=== PATIENT | male | born 1975 | race Caucasian/White ===

== ENCOUNTER 2017-07-18 22:59 | Emergency (ER) | payer OTHER ==
[2017-07-19] MEDS ORDERED: ALPRAZOLAM 1 MG TABLET ONE (00:23)
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
== END 2017-07-19 00:54 | disposition home or self-care (01) ==
LOC: ER 22:59
DX: F33.9 Major depressive disorder, recurrent, unspecified (principal); I10 Essential (primary) hypertension; F17.210 Nicotine dependence, cigarettes, uncomplicated
CPT/HCPCS: 99283

== ENCOUNTER 2023-08-14 10:45 | Emergency (ER) | payer OTHER ==
--- OUTSIDE RECORDS SUMMARY | 2023-08-14 10:49 | XMS REPORT | Continuity of Care Document ---
Author Name Unknown Address [address] [facility] [address] [place] [address] [facility] thconnect Address [address] [place] [address] Care Team Providers Care Retail Advertising Sales Manager Name Role Phone Cedric_Adan Attending Clinician Unavailable Kathryn Arellano Attending Clinician [phone] CHRETIAKIKO_Susan Attending Clinician Unavailable Kristina Rodriguez Attending Clinician [phone] SHENA_Cedric Attending Clinician Unavailable Loren Trivedi Attending Clinician [phone] MINOR KING M.D. Attending Clinician Malgorzata vailable Cedric_Adan Admitting Clinician Unavailable CHRETIEN_F Admitting Clinician Unavailable SHENA_Cedric Admitting Clinician Unavailable Payers Payer Name Policy Type Policy Number Effective Date Expirati on Date Source [facility] [id number] AETNA (POS) [id number] 2021 00:00:00 [place] [id number] 2019 00:00:00 Problems Condition Name Condition Details Condition Category Status Onset Date Resolution Date Last Treatment Date Treating Clinician Comments Source Mixed hyperlipid emia Mixed Hyperlipid emia Problem Active 11-08 00:00: 00 [facility] Acute thoracic back pain Acute Thoracic Back Pain Problem Active 8 00:00: 00 [facility] Acute sinusitis Acute Sinusitis Problem Active 09-26 00:00: 00 [facility] Allergic rhinitis Allergic Rhinitis Problem Active 09-26 00:00: 00 [facility] Cough Cough Problem Active 2022-0 7-18 00:00: 00 [facility] Chronic pain Chronic Pain Problem Active 2-03 00:00: 00 [facility] Vitamin D deficiency Vitamin D Deficiency Problem Active 07-23 00:00: 00 [facility] Hyperlipid emia Hyperlipid emia Problem Active 07-23 00:00: 00 [facility] Anxiety Anxiety Problem Active 07-23 00:00: 00 [facility] Chronic depression Chronic Depression Problem Active 07-23 00:00: 00 [facility] Essential hypertensi on Essential Hypertensi on Problem Active 07-23 00:00: 00 [facility] Pain Pain Problem Active 07-23 00:00: 00 [facility] Neck pain Ne[facility] pain Problem Active [facility] Cervical radiculopa thy Cervical radiculopa thy Problem Active [facility] Social History Smoking Status Start Date Stop Date Source Current some day smoker [facility] Light Tobacco Smoker [facility] Medications Ordered Medication Name Filled Medication Name Start Date Stop Date Current Medication? Ordering Clinician Indication Dosage Frequency Signature (SIG) Comments Components Source amlodipine 5 mg tablet Take 1 tablet every day by oral route at bedtime. amlodipine 5 mg tablet Take 1 tablet every day by oral route at bedtime. No 1 Q1D amlodipine 5 mg tablet Take 1 tablet every day by oral route at bedtime. [facility] cyclobenzap rine 5 mg tablet TAKE 1 TABLET BY MOUTH TWICE A DAY NEEDED FOR 90 DAYS cyclobenzap rine 5 mg tablet TAKE 1 TABLET BY MOUTH TWICE A DAY NEEDED FOR 90 DAYS No cyclobenza maxwell 5 mg tablet TAKE 1 TABLET BY MOUTH TWICE A DAY NEEDED FOR 90 DAYS [facility] gabapentin 300 mg capsule TAKE 1 CAPSULE 4 TIMES A DAY BY ORAL ROUTE NEEDED FOR 90 DAYS. gabapentin 300 mg capsule TAKE 1 CAPSULE 4 TIMES A DAY BY ORAL ROUTE NEEDED FOR 90 DAYS. No gabapentin 300 mg capsule TAKE 1 CAPSULE 4 TIMES A DAY BY ORAL ROUTE NEEDED FOR 90 DAYS. [facility] lisinopril 10 mg tablet TAKE 1 TABLET BY MOUTH EVERY DAY DIRECTED lisinopril 10 mg tablet TAKE 1 TABLET BY MOUTH EVERY DAY DIRECTED No lisinopril 10 mg tablet TAKE 1 TABLET BY MOUTH EVERY DAY DIRECTED [facility] tramadol 50 mg tablet TAKE 1 TABLET 6 TIMES A DAY BY ORAL ROUTE NEEDED FOR 30 DAYS. tramadol 50 mg tablet TAKE 1 TABLET 6 TIMES A DAY BY ORAL ROUTE NEEDED FOR 30 DAYS. No tramadol 50 mg tablet TAKE 1 TABLET 6 TIMES A DAY BY ORAL ROUTE NEEDED FOR 30 DAYS. [facility] Effexor XR 150 MG Oral Capsule Extended Release 24 Hour Effexor XR 150 MG Oral Capsule Extended Release 24 Hour Yes [facility] Temazepam 30 MG Oral Capsule Temazepam 30 MG Oral Capsule Yes [facility] [place] Carbonate 300 MG Oral Tablet [place] Carbonate 300 MG Oral Tablet Yes [facility] Gabapentin CAPS Gabapentin CAPS Yes [facility] Immunizations Ordered Immunization Name Filled Immunization Name Date Status Comments Source COVID-19, mRNA, LNP-S, PF, 30 mcg/0.3 mL dose (Pfizer-BioNTech) COVID-19, mRNA, LNP-S, PF, 30 mcg/0.3 mL dose (Pfizer-BioNTech) Unknown Completed [facility] COVID-19, mRNA, LNP-S, PF, 100 mcg/0.5 mL dose (Moderna) COVID-19, mRNA, LNP-S, PF, 100 mcg/0.5 mL dose (Moderna) Unknown Completed [facility] Vital Signs Vital Name Observation Time Observation Value Comments S ource BP Diastolic 2023-06-07 00:00:00 101 mm[Hg] [facility] BP Systolic 2023-06-07 00:00:00 164 mm[Hg] [facility] Body Weight 2023-06-07 00:00:00 4051.2 [oz_av] [facility] BP Diastolic 2022-04-07 00:00:00 83 mm[Hg] [facility] Height 2022-04-07 00:00:00 71 [in_i] [facility] BMI (Body Mass Index) 2022-04-07 00:00:00 35 kg/m2 [facility] BP Systolic 2022-04-07 00:00:00 135 mm[Hg] Count includes the [facility] Body Weight 2022-04-07 00:00:00 4009.6 [oz_av] [facility] BP Diastolic 2021-11-04 00:00:00 95 mm[Hg] [facility] Height 2021-11-04 00:00:00 71 [in_i] [facility] BMI (Body Mass Index) 2021-11-04 00:00:00 35.7 kg/m2 [facility] BP Systolic 2021-11-04 00:00:00 138 mm[Hg] Count includes the [facility] Body Weight 2021-11-04 00:00:00 4096 [oz_av] [facility] BP Diastolic 2021-09-26 00:00:00 87 mm[Hg] [facility] Height 2021-09-26 00:00:00 71 [in_i] [facility] BMI (Body Mass Index) 2021-09-26 00:00:00 35 kg/m2 [facility] BP Systolic 2021-09-26 00:00:00 140 mm[Hg] Count includes the [facility] Body Weight 2021-09-26 00:00:00 4009.6 [oz_av] [facility] BP Diastolic 2021-02-09 00:00:00 90 mm[Hg] [facility] Height 2021-02-09 00:00:00 71 [in_i] [facility] BMI (Body Mass Index) 2021-02-09 00:00:00 36.3 kg/m2 [facility] BP Systolic 2021-02-09 00:00:00 137 mm[Hg] Count includes the [facility] Body Weight 2021-02-09 00:00:00 4169.6 [oz_av] [facility] BP Diastolic 2021-01-04 00:00:00 114 mm[Hg] [facility] Height 2021-01-04 00:00:00 71 [in_i] [facility] BMI (Body Mass Index) 2021-01-04 00:00:00 36.7 kg/m2 [facility] BP Systolic 2021-01-04 00:00:00 169 mm[Hg] [facility] Body Weight 2021-01-04 00:00:00 4208 [oz_av] [facility] BP Diastolic 2020-04-22 00:00:00 94 mm[Hg] [facility] Height 2020-04-22 00:00:00 71 [in_i] [facility] BMI (Body Mass Index) 2020-04-22 00:00:00 37.2 kg/m2 [facility] BP Systolic 2020-04-22 00:00:00 166 mm[Hg] [facility] Body Weight 2020-04-22 00:00:00 4272 [oz_av] [facility] Weight 2019-01-16 15:27:00 245 [lb_av] [facility] Body Mass Index Calculated 2019-01-16 15:27:00 34.17 kg/m2 [facility] Height 2019-01-16 15:27:00 71 [in_us] [facility] Procedures Procedure Date / Time Performed Performing Clinicia n Source XR, chest, 2 view 2023-06-07 00:00:00 [facility] electrocardiogram, routine ECG, 12 leads min 2023-06-07 00:00:00 [facility] MRI Spine cervical wo contrast [id number] 2019-01-16 00:00:00 [facility] History of Wrist [facility] Plan of Care Planned Activity Planned Date Details Comments Source Diagnostic Test Pending 2023-06-07 00:00:00 CBC w/ auto diff [code = CBC w/ auto diff] [facility] Diagnostic Test Pending 2023-06-07 00:00:00 CMP, serum or plasma [code = CMP, serum or plasma] [facility] Diagnostic Test Pending 2023-06-07 00:00:00 lipid panel, serum [code = lipid panel, serum] [facility] Diagnostic Test Pending 2023-06-07 00:00:00 vitamin D, 25-hydroxy, total, serum [code = vitamin D, 25-hydroxy, total, serum] [facility] Diagnostic Test Pending 2023-06-07 00:00:00 HbA1c (hemoglobin A1c), blood [code = HbA1c (hemoglobin A1c), blood] [facility] Diagnostic Test Pending 2023-06-07 00:00:00 TSH + free T4, serum [code = TSH + free T4, serum] [facility] Diagnostic Test Pending 2023-06-07 00:00:00 PSA, serum or plasma [code = PSA, serum or plasma] [facility] Diagnostic Test Pending 2023-06-07 00:00:00 microalbumin, urine [code = microalbumin, urine] [facility] Instructions [facility] Encounters Start Date/Time End Date/Time Encounter Type Admission Type Attending [facility] Care Facility Care Department Encounter ID Source 2023-06-07 00:00:00 2023-06-07 00:00:00 Kathryn Arellano APRN, MSN, [facility]: [address] [place] [address], [address] [address] , Ph. [facility] 2022-04-07 00:00:00 2022-04-07 00:00:00 Outpatient L_Pena [facility] [id number] [facility] 2022-04-07 00:00:00 2022-04-07 00:00:00 Kathryn Arellano APRN, MSN, [facility]: [address] [place] [address], [address] [phone] , Ph. [facility] [id number] [facility] 2021-11-04 00:00:00 2021-11-04 00:00:00 Outpatient L_Pena [facility] [id number] [facility] 2021-11-04 00:00:00 2021-11-04 00:00:00 Outpatient L_Pena [facility] [id number] [facility] 2021-11-04 00:00:00 2021-11-04 00:00:00 Kathryn Arellano APRN, MSN, HOUSE WORKER-BC: 668 [facility], [address] [place] [phone] , Ph. [facility] [id number] [facility] 2021-11-04 00:00:00 2021-11-04 00:00:[address] [facility] [id number] 2021-11-04 00:00:00 2021-11-04 00:00:[address] [facility] [id number] 2021-11-03 00:00:00 2021-11-03 00:00:00 Outpatient L_Pena [facility] [id number] [facility] 2021-11-01 00:00:00 2021-11-01 00:00:00 Outpatient L_Pena [facility] [id number] [facility] 2021-09-26 03:10:00 2021-09-26 03:10:00 Outpatient CHRETIEN_F [facility] [id number] [facility] 2021-09-26 00:00:00 2021-09-26 00:00:00 Kristina Rodriguez APRN-HOUSE WORKER-B C: [address] [facility], [address], [place] [address] , Ph. [facility] [id number] [facility] 2021-09-26 00:00:00 2021-09-26 00:00:[address] [facility] [id number] 2021-02-10 02:27:00 2021-02-10 02:27:00 Outpatient SCHAUBROECK _L [facility] [id number] [facility] 2021-02-09 03:32:00 2021-02-09 03:32:00 Outpatient SCHAUBROECK _L [facility] [id number] [facility] 2021-02-09 00:00:00 2021-02-09 00:00:[address] [facility] [id number] 2021-02-09 00:00:00 2021-02-09 00:00:00 OZ OrellanaP-C: 1 [facility], [address] [address] , Ph. [facility] [id number] [facility] 2021-01-04 03:57:00 2021-01-04 03:57:00 Outpatient SCHAUBROECK _L [facility] [id number] [facility] 2021-01-04 00:00:00 2021-01-04 00:00:[address] [facility] [id number] 2021-01-04 00:00:00 2021-01-04 00:00:00 TRACEY Orellana-C: 3 [facility], [address] [place] [phone] , Ph. [facility] [id number] [facility] 2020-04-28 02:38:00 2020-04-28 02:38:00 Outpatient SCHAUBROECK _L [facility] [id number] [facility] 2020-04-22 05:50:00 2020-04-22 05:50:00 Outpatient SCHAUBROECK _L [facility] [id number] [facility] 2020-04-22 00:00:00 2020-04-22 00:00:[address] [facility] [id number] 2020-04-22 00:00:00 2020-04-22 00:00:00 Gricelda Reymundo mcwilliams, [facility]-: [address] [place] [address], [address] [place] [phone] , [address] [facility] [id number] [facility] 2019-11-10 06:36:00 2019-11-10 06:36:00 Outpatient SCHAUBROECK _L [facility] [id number] [facility] 2019-11-10 06:36:00 2019-11-10 06:36:00 Outpatient SCHAUBROECK _L [facility] [id number] [facility] 2019-01-16 13:45:00 2019-01-16 13:45:00 MINOR Montaño M.D. WASSERMAN, MATTHEW, M.D. [facility] [id number] [facility] Results Test Description Test Time Test Comments Results Result Co mments Source [facility] W Auto Differential panel - [id number] 00:00:00* Test Item Value Reference Range Interpretation Comme nts Leukocytes [#/volume] in Blo od by Automated count (test code = 6690-2) 9.8 x10e3/uL 3.4-10.8 Erythrocytes [#/volume] in Blood by Automated count (test code = 789-8) 5.46 x10e6/uL 4.14-5.80 Hemoglobin [Mass/volume] in Blood (test code = 718-7) 15.1 g/dL 13.0-17.7 Hematocrit [Volume Fraction] of Blood by Automated count (test code = 4544-3) 47.8 % 37.5-51.0 Erythrocyte mean corpuscular volume [Entitic volume] by Automated count (test code = 787-2) 88 fL 79-97 MCH [Entitic mass] by Automa charlene count (test code = 785-6) 27.7 pg 26.6-33.0 Erythrocyte mean corpuscular hemoglobin concentration [Mass/volume] by Automated count (test code = 786-4) 31.6 g/dL 31.5-35.7 Erythrocyte distribution wid th [Ratio] by Automated count (test code = 788-0) 15.2 % 11.6-15.4 Platelets [#/volume] in Bloo d by Automated count (test code = 777-3) 421 x10e3/uL 150-450 Neutrophils/100 leukocytes i n Blood by Automated count (test code = 770-8) 59 % not estab. Lymphocytes/100 leukocytes i n Blood by Automated count (test code = 736-9) 29 % not estab. Monocytes/100 leukocytes in Blood by Automated count (test code = 5905-5) 8 % not estab. Eosinophils/100 leukocytes i n Blood by Automated count (test code = 713-8) 2 % not estab. Basophils/100 leukocytes in Blood by Automated count (test code = 706-2) 1 % not estab. immature cells (test code = immature cells) christian science reader Neutrophils [#/volume] in Bl ood by Automated count (test code = 751-8) 5.9 x10e3/uL 1.4-7.0 Lymphocytes [#/volume] in Bl ood by Automated count (test code = 731-0) 2.8 x10e3/uL 0.7-3.1 Monocytes [#/volume] in Bloo d by Automated count (test code = 742-7) 0.8 x10e3/uL 0.1-0.9 Eosinophils [#/volume] in Bl ood by Automated count (test code = 711-2) 0.2 x10e3/uL 0.0-0.4 Basophils [#/volume] in Bloo d by Automated count (test code = 704-7) 0.1 x10e3/uL 0.0-0.2 Immature granulocytes/100 leukocytes in Blood by Automated count (test code = 58955-5) 1 % not estab. Immature granulocytes [#/volume] in Blood by Automated count (test code = 37915-7) 0.1 x10e3/uL 0.0-0.1 Nucleated erythrocytes/100 leukocytes [Ratio] in Blood by Automated count (test code = 38995-0) christian science reader Morphology [Interpretation] in Blood Narrative (test code = 04941-4) christian science reader [facility] panel - Serum or [id number] 00:00:00* Test Item Value Reference Range Interpretation Comme nts Glucose [Mass/volume] in Ser um or Plasma (test code = 2345-7) 93 mg/dL 65-99 Urea nitrogen [Mass/volume] in Serum or Plasma (test code = 3094-0) 11 mg/dL 6-24 Creatinine [Mass/volume] in Serum or Plasma (test code = 2160-0) 1.07 mg/dL 0.76-1.27 eGFR (test code = eGFR) 86 mL/min/1.73 >59 Urea nitrogen/Creatinine [Ma ss Ratio] in Serum or Plasma (test code = 3097-3) 10 9-20 Sodium [Moles/volume] in Ser um or Plasma (test code = 2951-2) 141 mmol/L 134-144 Potassium [Moles/volume] in Serum or Plasma (test code = 2823-3) 4.4 mmol/L 3.5-5.2 Chloride [Moles/volume] in Serum or Plasma (test code = 2075-0) 102 mmol/L 96-106 Carbon dioxide, total [Moles/volume] in Serum or Plasma (test code = 2027-9) 24 mmol/L 20-29 Calcium [Mass/volume] in Ser um or Plasma (test code = 58746-3) 9.8 mg/dL 8.7-10.2 Protein [Mass/volume] in Ser um or Plasma (test code = 2885-2) 6.6 g/dL 6.0-8.5 Albumin [Mass/volume] in Ser um or Plasma (test code = 1751-7) 4.6 g/dL 4.0-5.0 Globulin [Mass/volume] in Serum by calculation (test code = 35892-2) 2.0 g/dL 1.5-4.5 Albumin/Globulin [Mass Ratio ] in Serum or Plasma (test code = 1759-0) 2.3 1.2-2.2 H Bilirubin.total [Mass/volume ] in Serum or Plasma (test code = 1974-2) 0.2 mg/dL 0.0-1.2 Alkaline phosphatase [Enzymatic activity/volume] in Serum or Plasma (test code = 6768-6) 58 IU/L 44-121 Aspartate aminotransferase [Enzymatic activity/volume] in Serum or Plasma (test code = 1920-8) 24 IU/L 0-40 Alanine aminotransferase [Enzymatic activity/volume] in Serum or Plasma (test code = 1742-6) 38 IU/L 0-44 [facility] panel - Serum or [id number] 00:00:00* Test Item Value Reference Range Interpretation Comme nts Cholesterol [Mass/volume] in Serum or Plasma (test code = 2093-3) 212 mg/dL 100-199 H Triglyceride [Mass/volume] i n Serum or Plasma (test code = 2571-8) 113 mg/dL 0-149 Cholesterol in HDL [Mass/vol ume] in Serum or Plasma (test code = 2085-9) 40 mg/dL >39 Cholesterol in VLDL [Mass/vo lume] in Serum or Plasma by calculation (test code = 55372-5) 20 mg/dL 5-40 Cholesterol in LDL [Mass/vol ume] in Serum or Plasma by calculation (test code = 83863-9) 152 mg/dL 0-99 H Laboratory comment [Text] in Report Narrative (test code = 33264-1) christian science reader Cholesterol.total/Cholestero l.in HDL [Mass ratio] in Serum or Plasma (test code = 9830-1) 5.3 ratio 0.0-5.0 H [facility]wood[facility]emoglobin A1c/Hemoglobin.total in Blood 2021-11-05 00:00:00* Test Item Value Reference Range Interpretation Comme nts Hemoglobin A1c/Hemoglobin.to audie in Blood (test code = 4548-4) 6.2 % 4.8-5.6 H [facility]state specific Ag [Mass/volume] in Serum or [id number] 00:00:00* Test Item Value Reference Range Interpretation Comme nts Prostate specific Ag [Mass/v olume] in Serum or Plasma (test code = 2857-1) 0.6 NG/mL 0.0-4.0 [facility]yrox[facility] (T4) free [Mass/volume] in Serum or [id number] 00:00:00* Test Item Value Reference Range Interpretation Comme nts Thyroxine (T4) free [Mass/vo lume] in Serum or Plasma (test code = 3024-7) 1.08 NG/dL 0.82-1.77 [facility]yrotropin [Units/volume] in Serum or Plasma by Detection limit <= 0.005 mIU/[id number] 00:00:00* Test Item Value Reference Range Interpretation Comme nts Thyrotropin [Units/volume] i n Serum or Plasma by Detection limit <= 0.005 mIU/L (test code = 47055-9) 0.885 uIU/mL 0.450-4.500 [facility]id strep group A, [id number] 13:56:00 * Test Item Value Reference Range Interpretation Comme nts Strep (test code = Strep) negative [facility]wood[facility]ARS-CoV-2 (COVID-19) Ag [Presence] in Respiratory specimen by Rapid [id number] 13:49:00* Test Item Value Reference Range Interpretation Comme nts SARS CoV 2 (test code = SARS CoV 2) negative [facility] W Auto Differential panel - [id number] 00:00:00* Test Item Value Reference Range Interpretation Comme nts Leukocytes [#/volume] in Blo od by Automated count (test code = 6690-2) 9.4 x10e3/uL 3.4-10.8 Erythrocytes [#/volume] in Blood by Automated count (test code = 789-8) 5.66 x10e6/uL 4.14-5.80 Hemoglobin [Mass/volume] in Blood (test code = 718-7) 16.1 g/dL 13.0-17.7 Hematocrit [Volume Fraction] of Blood by Automated count (test code = 4544-3) 48.9 % 37.5-51.0 Erythrocyte mean corpuscular volume [Entitic volume] by Automated count (test code = 787-2) 86 fL 79-97 Erythrocyte mean corpuscular hemoglobin [Entitic mass] by Automated count (test code = 785-6) 28.4 pg 26.6-33.0 Erythrocyte mean corpuscular hemoglobin concentration [Mass/volume] by Automated count (test code = 786-4) 32.9 g/dL 31.5-35.7 Erythrocyte distribution wid th [Ratio] by Automated count (test code = 788-0) 13.2 % 11.6-15.4 Platelets [#/volume] in Bloo d by Automated count (test code = 777-3) 363 x10e3/uL 150-450 Neutrophils/100 leukocytes i n Blood by Automated count (test code = 770-8) 52 % not estab. Lymphocytes/100 leukocytes i n Blood by Automated count (test code = 736-9) 37 % not estab. Monocytes/100 leukocytes in Blood by Automated count (test code = 5905-5) 8 % not estab. Eosinophils/100 leukocytes i n Blood by Automated count (test code = 713-8) 2 % not estab. Basophils/100 leukocytes in Blood by Automated count (test code = 706-2) 1 % not estab. immature cells (test code = immature cells) christian science reader Neutrophils [#/volume] in Bl ood by Automated count (test code = 751-8) 4.9 x10e3/uL 1.4-7.0 Lymphocytes [#/volume] in Bl ood by Automated count (test code = 731-0) 3.5 x10e3/uL 0.7-3.1 H Monocytes [#/volume] in Bloo d by Automated count (test code = 742-7) 0.7 x10e3/uL 0.1-0.9 Eosinophils [#/volume] in Bl ood by Automated count (test code = 711-2) 0.2 x10e3/uL 0.0-0.4 Basophils [#/volume] in Bloo d by Automated count (test code = 704-7) 0.1 x10e3/uL 0.0-0.2 Immature granulocytes/100 leukocytes in Blood by Automated count (test code = 61263-0) 0 % not estab. Immature granulocytes [#/volume] in Blood by Automated count (test code = 55382-1) 0.0 x10e3/uL 0.0-0.1 Nucleated erythrocytes/100 leukocytes [Ratio] in Blood by Automated count (test code = 42237-0) christian science reader Morphology [Interpretation] in Blood Narrative (test code = 85034-3) christian science reader [facility] 2000 panel - Serum or [id number] 00:00:00* Test Item Value Reference Range Interpretation Comme nts Glucose [Mass/volume] in Serum or Plasma (test code = 2345-7) 99 mg/dL 65-99 Urea nitrogen [Mass/volume] in Serum or Plasma (test code = 3094-0) 9 mg/dL 6-24 Creatinine [Mass/volume] in Serum or Plasma (test code = 2160-0) 1.01 mg/dL 0.76-1.27 Glomerular filtration rate/1.73 sq M.predicted among non-blacks [Volume Rate/Area] in Serum, Plasma or Blood by Creatinine-based formula (CKD-EPI) (test code = 96110-6) 88 mL/min/1.73 >59 Glomerular filtration rate/1.73 sq M.predicted among blacks [Volume Rate/Area] in Serum, Plasma or Blood by Creatinine-based formula (CKD-EPI) (test code = 18306-6) 102 mL/min/1.73 >59 Urea nitrogen/Creatinine [Mass Ratio] in Serum or Plasma (test code = 3097-3) 9 9-20 Sodium [Moles/volume] in Serum or Plasma (test code = 2951-2) 142 mmol/L 134-144 Potassium [Moles/volume] in Serum or Plasma (test code = 2823-3) 4.9 mmol/L 3.5-5.2 Chloride [Moles/volume] in Serum or Plasma (test code = 2075-0) 103 mmol/L 96-106 Carbon dioxide, total [Moles/volume] in Serum or Plasma (test code = 2027-9) 25 mmol/L 20-29 Calcium [Mass/volume] in Serum or Plasma (test code = 78791-9) 9.4 mg/dL 8.7-10.2 Protein [Mass/volume] in Serum or Plasma (test code = 2885-2) 6.5 g/dL 6.0-8.5 Albumin [Mass/volume] in Serum or Plasma (test code = 1751-7) 4.3 g/dL 4.0-5.0 Globulin [Mass/volume] in Serum by calculation (test code = 06083-2) 2.2 g/dL 1.5-4.5 Albumin/Globulin [Mass Ratio ] in Serum or Plasma (test code = 1759-0) 2.0 1.2-2.2 Bilirubin.total [Mass/volume ] in Serum or Plasma (test code = 1974-) 0.2 mg/dL 0.0-1.2 Alkaline phosphatase [Enzymatic activity/volume] in Serum or Plasma (test code = 6768-6) 104 IU/L 39-117 Aspartate aminotransferase [Enzymatic activity/volume] in Serum or Plasma (test code = 1920-8) 21 IU/L 0-40 Alanine aminotransferase [Enzymatic activity/volume] in Serum or Plasma (test code = 1742-6) 34 IU/L 0-44 [facility] - [facility] or [id number] 00:00:00* Test Item Value Reference Range Interpretation Comme nts Cholesterol [Mass/volume] in Serum or Plasma (test code = 2093-3) 141 mg/dL 100-199 Triglyceride [Mass/volume] i n Serum or Plasma (test code = 2571-8) 113 mg/dL 0-149 Cholesterol in HDL [Mass/vol ume] in Serum or Plasma (test code = 208-9) 32 mg/dL >39 L Cholesterol in VLDL [Mass/vo lume] in Serum or Plasma by calculation (test code = 64604-9) 21 mg/dL 5-40 Cholesterol in LDL [Mass/vol ume] in Serum or Plasma by calculation (test code = 24543-8) 88 mg/dL 0-99 Laboratory comment [Text] in Report Narrative (test code = 09207-6) [employer] Cholesterol in LDL/Cholester ol in HDL [Mass Ratio] in Serum or Plasma (test code = 99855-2) 2.8 ratio 0.0-3.6 [facility] - Serum or Plasma 2020-04-16 00:00:00* Test Item Value Reference Range Interpretation Comme nts Prostate specific Ag [Mass/v olume] in Serum or Plasma (test code = 2857-1) 0.8 NG/mL 0.0-4.0 Prostate Specific Ag Free [Mass/volume] in Serum or Plasma (test code = 71285-6) 0.11 NG/mL n/a Prostate Specific Ag Free/Pr ostate specific Ag.total in Serum or Plasma (test code = 77642-0) 13.8 % [facility] (T4[facility] free [Mass/volume] in Serum or [id number] 00:00:00* Test Item Value Reference Range Interpretation Comme nts Thyroxine (T4) free [Mass/vo lume] in Serum or Plasma (test code = 3024-7) 0.78 NG/dL 0.82-1.77 L [facility] [Units/volume] in Serum or Plasma by Detection limit <= 0.005 mIU/[id number] 00:00:00* Test Item Value Reference Range Interpretation Comme nts Thyrotropin [Units/volume] i n Serum or Plasma by Detection limit <= 0.005 mIU/L (test code = 31157-6) 0.863 uIU/mL 0.450-4.500 [facility]25-Hydroxyvitamin D3+25-Hydroxyvitamin D2 [Mass/volume] in Serum or [id number] 00:00:00* Test Item Value Reference Range Interpretation Comme nts 25-Hydroxyvitamin D3+25-Hydroxyvitamin D2 [Mass/volume] in Serum or Plasma (test code = 74255-2) 26.8 NG/mL 30.0-100.0 L [facility]
--- NOTE | 2023-08-14 11:49 | ER ---
Nurse's Notes [facility] Name: Omkar Borges Age: 48 yrs Sex: Male : 1975 Arrival Date: 08/14/2023 Time: 10:45 Bed 10 Private MD: Diagnosis: Contusion of right hand;Contusion of right forearm;Laceration without foreign body of left elbow;Abrasion of right hand Presentation: 08/13 11:07 Chief complaint: EMS states: "toned out for swelling to right wrist/hand from getting mb9 hit with a pipe wrench.". Coronavirus screen: At this time, the client does not indicate any symptoms associated with coronavirus-19. Ebola Screen: No symptoms or risks identified at this time. Initial Sepsis Screen: Does the patient meet any 2 criteria? No. Patient's initial sepsis screen is negative. Does the patient have a suspected source of infection? No. Patient's initial sepsis screen is negative. Risk Assessment: Do you want to hurt yourself or someone else? Patient reports no desire to harm self or others. 11:07 Method Of Arrival: EMS: [facility] mb9 11:07 Acuity: MATTHEW 3 mb9 11:09 Onset of symptoms. mb9 Triage Assessment: 11:11 General: Appears in no apparent distress. Behavior is calm, cooperative. Pain: mb9 Complains of pain in right arm. EENT: No signs and/or symptoms were reported regarding the EENT system. Neuro: Joshi Agitation-Sedation Scale (RASS): 0 - Alert and Calm Level of Consciousness is awake, alert, obeys commands, Oriented to person, place, time, situation, Appropriate for age. Cardiovascular: Patient's skin is warm and dry. Cardiovascular: Pulses are all present. Respiratory: Airway is patent Respiratory effort is even, unlabored, Respiratory pattern is regular, symmetrical. GI: No signs and/or symptoms were reported involving the gastrointestinal system. : No signs and/or symptoms were reported regarding the genitourinary system. Derm: Skin is pink, warm \\T\\ dry. Musculoskeletal: Range of motion: limited in right elbow and right wrist Swelling present in right arm. Historical: - Allergies: 11:10 No Known Allergies; mb9 - Home Meds: 11:10 lisinopril 10 mg oral tablet [Active]; amlodipine oral [Active]; mb9 - PMHx: 11:10 Arthritis; R great toe; chronic back pain; Depression; Hyperlipidemia; Hypertension; mb9 testicular cancer; - Immunization history:: Adult Immunizations up to date. - Infectious Disease History:: Denies. - Social history:: Smoking status: Patient denies any tobacco usage or history of. - Family history:: not pertinent. Screenin:12 [facility] ED Fall Risk Assessment (Adult) History of falling in the last 3 months, ap3 including since admission No falls in past 3 months (0 pts) Confusion or Disorientation No (0 pts) Intoxicated or Sedated No (0 pts) Impaired Gait No (0 pts) Mobility Assist Device Used No (0 pt) Altered Elimination No (0 pt) Score/Fall Risk Level 0 - 2 = Low Risk Oriented to surroundings, Maintained a safe environment, Educated pt \\T\\ family on fall prevention, incl call for assistance when getting out of bed, Assessed \\T\\ reinforced patient's understanding of fall precautions, Provided non-skid footwear, Hourly rounding (assess needs \\T\\ fall precautionary measures) done, Used ambulatory aids as needed (educated on \\T\\ assisted with), Used gait belt as appropriate. Abuse screen: Denies threats or abuse. Nutritional screening: No deficits noted. Tuberculosis screening: No symptoms or risk factors identified. Vital Signs: 11:07 Pain 10/10; mb9 11:11 BP 149 / 83; Pulse 85; Resp 18; Temp 98.3(O); Pulse Ox 100% on R/A; Weight 115.21 kg; mb9 Height 5 ft. 10 in. ; Pain 6/10; 11:11 Body Mass Index 36.44 (115.21 kg, 177.8 cm) mb9 11:07 Pain Scale: Adult mb9 11:11 Pain Scale: Adult mb9 ED Course: 11:03 Patient arrived in ED. ap3 11:07 Miguel Mosley MD is Attending Physician. matt 11:08 Triage completed. mb9 11:11 Arm band placed on. mb9 12:13 Patient has correct armband on for positive identification. Provided Education on: ap3 discharge instructions . 12:13 No provider procedures requiring assistance completed. Patient did not have IV access ap3 during this emergency room visit. Administered Medications: No medications were administered Medication: 12:13 VIS not applicable for this client. ap3 Outcome: 11:49 Discharge ordered by MD. gutierrez 12:13 Discharged to home ambulatory, with family, ap3 12:13 Condition: good 12:13 Discharge instructions given to patient, Instructed on discharge instructions, follow up and referral plans. Demonstrated understanding of instructions, follow-up care, 12:13 Patient left the ED. ap3 Signatures: Miguel Mosley MD MD cha Prokisch, Amanda RN RN ap3 Maria Ines Bhakta RN RN mb9 Corrections: (The following items were deleted from the chart) 11:10 11:07 Chief complaint: EMS states: "toned out for deformity and swelling to right mb9 wrist/hand from getting hit with a pipe wrench." mb9
--- NOTE | 2023-08-14 11:49 | EDPHYS ---
Physician Documentation [facility] Name: Omkar Borges Age: 48 yrs Sex: Male : 1975 Arrival Date: 08/14/2023 Time: 10:45 Bed 10 Private MD: EDWIN Physician Miguel Mosley HPI: 08/13 11:40 This 48 yrs old Male presents to ER via EMS with complaints of HIT AT WORK matt WITH A WRENCH , HAND, WRIST AND ELBOW. 11:40 The patient or guardian complains of decreased range of motion, injury, a laceration, matt 0.5 cm(s), pain. The complaints affect the right elbow. Context: resulted from a direct blow, by a solid object. Onset: The symptoms/episode began/occurred just prior to arrival. Treatment prior to arrival includes: elevation of the extremity, splinting the affected extremity. Modifying factors: The symptoms are alleviated by remaining still, the symptoms are aggravated by movement. The patient or guardian reports decreased range of motion, injury, pain, swelling, tenderness. The complaints affect the right hand diffusely. Context: The problem was sustained at work, resulted from a direct blow, by a solid object. Associated signs and symptoms: The patient has no apparent associated signs or symptoms. Modifying factors: The symptoms are alleviated by holding still, the symptoms are aggravated by movement, dependent position. Associated signs and symptoms: Pertinent positives:. Severity of symptoms: At their worst the symptoms were moderate, in the emergency department the symptoms are unchanged. The patient or guardian reports decreased range of motion, pain, swelling, tenderness. Historical: - Allergies: 11:10 No Known Allergies; mb9 - Home Meds: 11:10 lisinopril 10 mg oral tablet [Active]; amlodipine oral [Active]; mb9 - PMHx: 11:10 Arthritis; R great toe; chronic back pain; Depression; Hyperlipidemia; Hypertension; mb9 testicular cancer; - Immunization history:: Adult Immunizations up to date. - Infectious Disease History:: Denies. - Social history:: Smoking status: Patient denies any tobacco usage or history of. - Family history:: not pertinent. ROS: 11:40 Constitutional: Negative for fever, chills, and weight loss, Eyes: Negative for injury, matt pain, redness, and discharge, ENT: Negative for injury, pain, and discharge, Neck: Negative for injury, pain, and swelling, Cardiovascular: Negative for chest pain, palpitations, and edema, Respiratory: Negative for shortness of breath, cough, wheezing, and pleuritic chest pain, Abdomen/GI: Negative for abdominal pain, nausea, vomiting, diarrhea, and constipation, Back: Negative for injury and pain, : Negative for injury, bleeding, discharge, and swelling, Neuro: Negative for headache, weakness, numbness, tingling, and seizure, Psych: Negative for depression, anxiety, suicide ideation, homicidal ideation, and hallucinations, Allergy/Immunology: Negative for hives, rash, and allergies, Endocrine: Negative for neck swelling, polydipsia, polyuria, polyphagia, and marked weight changes, Hematologic/Lymphatic: Negative for swollen nodes, abnormal bleeding, and unusual bruising, 11:40 MS/extremity: Positive for injury or acute deformity, abrasion, decreased range of motion, pain, swelling, tenderness, of the right arm, 11:40 Skin: Positive for laceration(s), of the right elbow, Exam: 11:40 Skin: injury, contusion(s), that are deep, of the right hand and right arm, matt laceration(s), the wound is approximately 0.5 cm(s), with a depth of .25 cm(s), of the right elbow, Vital Signs: 11:07 Pain 10/10; mb9 11:11 BP 149 / 83; Pulse 85; Resp 18; Temp 98.3(O); Pulse Ox 100% on R/A; Weight 115.21 kg; mb9 Height 5 ft. 10 in. ; Pain 6/10; 11:11 Body Mass Index 36.44 (115.21 kg, 177.8 cm) mb9 11:07 Pain Scale: Adult mb9 11:11 Pain Scale: Adult mb9 MDM: 11:07 Patient medically screened. matt 11:45 Differential diagnosis: dislocation, open fracture, closed fracture, contusion, matt abrasion, tendonitis. Data reviewed: vital signs, nurses notes. Consideration of Admission/Observation Escalation of care including admission/observation considered. I considered the following discharge prescriptions or medication management in the emergency department PT REFUSED ALL TREATMENT. Test considered but Not performed: Other Details PT REFUSED ANY TREATMENT, WANT TO GO TO [employer]. Historians other than the Patient: Family Member: PARENTS. Care significantly affected by the following chronic conditions: Hypertension, Obesity. Counseling: I had a detailed discussion with the patient and/or guardian regarding PT WAS NO CARE HERE, WANT TO LEAVE AND GO TO [facility] , WITH PARENTS. Administered Medications: No medications were administered Disposition Summary: 08/14/23 11:49 Discharge Ordered Notes: Location: Home matt Problem: new matt Symptoms: are unchanged matt Condition: Undetermined matt Diagnosis - Contusion of right hand matt - Contusion of right forearm matt - Laceration without foreign body of left elbow matt - Abrasion of right hand matt Followup: matt - With: Private Physician - When: Upon discharge from the Emergency Department - Reason: Recheck today's complaints, Continuance of care, Re-evaluation by your physician Discharge Instructions: - Discharge Summary Sheet matt - Abrasion matt - Contusion matt - Contusion, [id number] matt - Abrasion, [id number] matt Forms: - Medication Reconciliation Form matt - Antibiotic Education matt - Prescription Opioid Use matt - Patient Portal Instructions matt - Leadership Thank You Letter matt Signatures: Miguel Mosley MD MD cha Breneman, Mary Beth RN RN mb9
[2023-08-14 12:21] VITALS: BP 149/83; TEMP 98.3; O2SAT 100
== END 2023-08-14 12:13 | disposition home or self-care (01) ==
LOC: ER 10:45
DX: S51.011A Laceration without foreign body of right elbow, initial encounter (principal); S60.511A Abrasion of right hand, initial encounter; S60.221A Contusion of right hand, initial encounter; S50.11XA Contusion of right forearm, initial encounter
CPT/HCPCS: 99283